=== PATIENT | male | born 1965 | race Caucasian/White ===

== ENCOUNTER 2017-10-15 12:13 | Emergency (ER) | END 2017-10-15 17:05 | disposition home or self-care (01) ==

== ENCOUNTER 2017-10-16 17:34 | Emergency (ER) | END 2017-10-16 21:41 | disposition home or self-care (01) ==

== ENCOUNTER 2017-11-27 12:31 | Observation (INO) | END 2017-11-28 14:29 | disposition home or self-care (01) ==